=== PATIENT | female | born 1970 | race Caucasian/White ===

== ENCOUNTER 2021-12-31 21:12 | Emergency (ER) | payer MEDICARE, MEDICAID ==
[~2021-12-31] VITALS: Ht 157.4 cm; Wt 67.1 kg
[2021-12-31] MEDS ORDERED: LASIX40 MG PO (22:08)
[2021-12-31] MEDS ORDERED: ONE DAILY WITH1 EACH PO (22:09)
[2021-12-31] MEDS ORDERED: SEROQUEL25 MG PO (22:09)
[2021-12-31] MEDS ORDERED: K-TAB10 MEQ PO (22:09)
[2021-12-31] MEDS ORDERED: VITAMIN B-121000 MC2 PO (22:10)
[2021-12-31] MEDS ORDERED: VITAMIN D3250 MCG PO (22:11)
[2021-12-31] MEDS ORDERED: OMEPRAZOLE40 MG PO (22:11)
[2021-12-31] MEDS ORDERED: LEVOTHYROXINE75 MC1 PO (22:11)
[2021-12-31] MEDS ORDERED: TOPAMAX100 M1 PO (22:12)
[2021-12-31] MEDS ORDERED: ASPIRIN FOR CHI81 MG PO (22:12)
[2021-12-31] MEDS ORDERED: VISTARIL25 MG PO (22:12)
[2021-12-31] MEDS ORDERED: BUSPAR15 MG PO (22:13)
[2021-12-31] MEDS ORDERED: CYMBALTA60 MG PO (22:13)
[2021-12-31] MEDS ORDERED: TENORMIN50 MG PO (22:15)
[2021-12-31] MEDS ORDERED: ACYCLOVIR400 MG PO (22:17)
[2021-12-31] MEDS ORDERED: NEXIUM 24HR20 M1 PO (22:17)
[2021-12-31] MEDS ORDERED: POTASSIUM CHLO20 ME3 PO (22:20)
[2021-12-31 23:14] LABS: BILIRUBIN Negative (Negative); BLOOD Negative (Negative); CLARITY Cloudy (Clear); COLOR Yellow (Yellow); GLUCOSE Negative (Negative); KETONE Negative (Negative); LEUKO ESTERASE 2+ (Negative); NITRITE Positive (Negative); PH 6.5 (4.5-8.0); SPECIFIC GRAVITY 1.015 (1.001-1.030)
[2021-12-31 23:16] LABS: BASO # 0.1 10*3/uL (0.0-0.1); BASO % 0.9 % (0.0-1.0); EOS # 0.3 10*3/uL (0.0-0.4); EOS % 2.4 % (1.0-4.0); LYMPH # 3.2 10*3/uL (1.3-4.4); LYMPH % 25.9 % (27.0-41.0); MEAN CELL VOLUME 84.5 fl (81.0-99.0); MEAN PLATELET VOLUME 11.3 fl (9.6-12.3); MONO # 1.2 10*3/uL (0.1-1.0); MONO % 9.6 % (3.0-9.0); NEUT # 7.4 10*3/uL (2.3-7.9); NEUT % 60.6 % (47.0-73.0); PLATELET COUNT AUTOMATED 302 10*3/uL (130-400); RED BLOOD COUNT 4.85 10*6/uL (4.10-5.10); RED CELL DISTRI WIDTH 14.1 % (0-14.5); WHITE BLOOD COUNT 12.3 10*3/uL (4.8-10.8)
[2021-12-31 23:25] LABS: BACTERIA 2+; EPITHELIAL CELLS TNTC; WBC 16-20 wbc/hpf (0-5)
[2021-12-31 23:38] LABS: ALKALINE PHOSPHATASE 99 U/L (45-117); BUN 9 mg/dl (7-24); CHLORIDE 109 mmol/L (98-107); CREATININE 0.95 mg/dL (0.55-1.02); POTASSIUM 3.2 mmol/L (3.5-5.1); SGOT/AST 12 IU/L (3-35); SGPT/ALT 29 U/L (12-78); SODIUM 141 mmol/L (136-145); TOTAL PROTEIN 6.9 gm/dL (6.4-8.2)
[2022-01-01] MEDS ORDERED: AMOX TR-K CLV1 EACH PO (02:12)
== END 2022-01-01 02:15 | disposition home or self-care (01) ==
LOC: ED 21:12
PROVIDERS: Emergency Medicine
DX: J98.01 Acute bronchospasm (principal); J44.1 Chronic obstructive pulmonary disease with (acute) exacerbation; N39.0 Urinary tract infection, site not specified; R53.83 Other fatigue; U09.9 Post COVID-19 condition, unspecified; E03.9 Hypothyroidism, unspecified; Z88.8 Allergy status to other drugs, medicaments and biological substances; Z88.1 Allergy status to other antibiotic agents; Z88.5 Allergy status to narcotic agent; Z79.82 Long term (current) use of aspirin; Z79.899 Other long term (current) drug therapy

== ENCOUNTER 2022-01-01 17:38 | Emergency (ER) | payer MEDICARE, MEDICAID ==
[~2022-01-01 17:38] MED LIST: ACYCLOVIR400 MG PO; AMOX TR-K CLV1 EACH PO; ASPIRIN FOR CHI81 MG PO; BUSPAR15 MG PO; CYMBALTA60 MG PO; K-TAB10 MEQ PO; LASIX40 MG PO; LEVOTHYROXINE75 MC1 PO; NEXIUM 24HR20 M1 PO; OMEPRAZOLE40 MG PO; ONE DAILY WITH1 EACH PO; POTASSIUM CHLO20 ME3 PO; SEROQUEL25 MG PO; TENORMIN50 MG PO; TOPAMAX100 M1 PO; VISTARIL25 MG PO; VITAMIN B-121000 MC2 PO; VITAMIN D3250 MCG PO
[2022-01-01 18:11] LABS: BASO # 0.1 10*3/uL (0.0-0.1); EOS # 0.3 10*3/uL (0.0-0.4); EOS % 2.7 % (1.0-4.0); HEMATOCRIT 42.4 % (37.0-47.0); LYMPH # 0.6 10*3/uL (1.3-4.4); LYMPH % 5.5 % (27.0-41.0); MEAN CELL VOLUME 85.7 fl (81.0-99.0); MEAN CORPUSCULAR HGB 27.3 pg (27.0-31.0); MEAN CORPUSCULAR HGB CONC 31.8 g/dl (33.0-37.0); MEAN PLATELET VOLUME 11.7 fl (9.6-12.3); MONO # 1.3 10*3/uL (0.1-1.0); MONO % 11.6 % (3.0-9.0); NEUT # 8.7 10*3/uL (2.3-7.9); NEUT % 78.5 % (47.0-73.0); PLATELET COUNT AUTOMATED 254 10*3/uL (130-400); RED BLOOD COUNT 4.95 10*6/uL (4.10-5.10); RED CELL DISTRI WIDTH 14.5 % (0-14.5); WHITE BLOOD COUNT 11.1 10*3/uL (4.8-10.8)
[2022-01-01 18:29] LABS: CREATININE 1.18 mg/dL (0.55-1.02); POTASSIUM 3.4 mmol/L (3.5-5.1); TOTAL PROTEIN 6.9 gm/dL (6.4-8.2)
[2022-01-01 20:35] LABS: BILIRUBIN Negative (Negative); BLOOD Negative (Negative); CLARITY Clear (Clear); COLOR Yellow (Yellow); GLUCOSE Negative (Negative); KETONE Negative (Negative); LEUKO ESTERASE Negative (Negative); NITRITE Negative (Negative); PH 7.5 (4.5-8.0); SPECIFIC GRAVITY 1.015 (1.001-1.030); UROBILINOGEN 0.2 E.U./dl (0.0-1.0)
[2022-01-01 21:15] LABS: RBC 0-2 rbc/hpf (0-2)
[2022-01-01 21:16] LABS: HYALINE CAST 0-2; MUCOUS 1+
== END 2022-01-01 21:37 | disposition home or self-care (01) ==
LOC: ED 17:38
PROVIDERS: Emergency Medicine
DX: R30.0 Dysuria (principal); R51.9 Headache, unspecified; J44.9 Chronic obstructive pulmonary disease, unspecified; Z88.1 Allergy status to other antibiotic agents; Z88.8 Allergy status to other drugs, medicaments and biological substances; Z79.899 Other long term (current) drug therapy; Z79.82 Long term (current) use of aspirin; Z86.73 Personal history of transient ischemic attack (TIA), and cerebral infarction without residual deficits

== ENCOUNTER → 2022-10-22 | Outpatient (CLI) | payer MEDICARE ==
[2022-10-22 13:40] LABS: BASO # 0.1 10*3/uL (0.0-0.1); BASO % 0.6 % (0.0-1.0); EOS # 0.1 10*3/uL (0.0-0.4); EOS % 1.1 % (1.0-4.0); HEMATOCRIT 41.3 % (37.0-47.0); LYMPH % 17.9 % (27.0-41.0); MEAN CORPUSCULAR HGB 27.5 pg (27.0-31.0); MEAN CORPUSCULAR HGB CONC 30.3 g/dl (33.0-37.0); MEAN PLATELET VOLUME 11.6 fl (9.6-12.3); MONO # 0.8 10*3/uL (0.1-1.0); MONO % 7.7 % (3.0-9.0); NEUT # 7.8 10*3/uL (2.3-7.9); NEUT % 72.2 % (47.0-73.0); PLATELET COUNT AUTOMATED 241 10*3/uL (130-400); RED BLOOD COUNT 4.54 10*6/uL (4.10-5.10); RED CELL DISTRI WIDTH 14.1 % (0-14.5); WHITE BLOOD COUNT 10.9 10*3/uL (4.8-10.8)
== END | disposition home or self-care (01) ==
LOC: LAB 13:11
PROVIDERS: ATTEND Internal Medicine Critical Care Medicine
DX: Z79.899 Other long term (current) drug therapy (principal)

== ENCOUNTER → 2022-11-28 | Outpatient (CLI) | payer MEDICARE ==
[2022-11-28 11:47] LABS: BASO # 0.1 10*3/uL (0.0-0.1); BASO % 0.8 % (0.0-1.0); EOS # 0.1 10*3/uL (0.0-0.4); EOS % 1.1 % (1.0-4.0); HEMATOCRIT 42.3 % (37.0-47.0); LYMPH # 1.7 10*3/uL (1.3-4.4); LYMPH % 18.1 % (27.0-41.0); MEAN CELL VOLUME 89.2 fl (81.0-99.0); MEAN CORPUSCULAR HGB 28.3 pg (27.0-31.0); MEAN CORPUSCULAR HGB CONC 31.7 g/dl (33.0-37.0); MEAN PLATELET VOLUME 11.5 fl (9.6-12.3); MONO # 0.8 10*3/uL (0.1-1.0); MONO % 8.3 % (3.0-9.0); NEUT # 6.8 10*3/uL (2.3-7.9); NEUT % 71.3 % (47.0-73.0); PLATELET COUNT AUTOMATED 274 10*3/uL (130-400); RED BLOOD COUNT 4.74 10*6/uL (4.10-5.10); RED CELL DISTRI WIDTH 13.2 % (0-14.5); WHITE BLOOD COUNT 9.5 10*3/uL (4.8-10.8)
== END | disposition home or self-care (01) ==
LOC: LAB 11:31
PROVIDERS: ATTEND Internal Medicine Critical Care Medicine
DX: Z79.899 Other long term (current) drug therapy (principal)

== ENCOUNTER 2023-02-03 00:49 | Emergency (ER) | payer MEDICARE ==
[~2023-02-03] VITALS: Ht 167.6 cm; Wt 64.0 kg
== END 2023-02-03 01:40 | disposition left against medical advice (07) ==
LOC: ED 00:49
DX: R56.9 Unspecified convulsions (principal); J44.9 Chronic obstructive pulmonary disease, unspecified; F32.A Depression, unspecified; F41.9 Anxiety disorder, unspecified; Z86.73 Personal history of transient ischemic attack (TIA), and cerebral infarction without residual deficits; Z88.8 Allergy status to other drugs, medicaments and biological substances; Z88.5 Allergy status to narcotic agent

== ENCOUNTER → 2023-12-28 | Outpatient (CLI) | payer OTHER ==
[2023-12-28 13:15] LABS: BASO # 0.1 10*3/uL (0.0-0.1); BASO % 0.4 % (0.0-1.0); EOS % 0.2 % (1.0-4.0); HEMATOCRIT 40.5 % (37.0-47.0); LYMPH # 1.5 10*3/uL (1.3-4.4); LYMPH % 7.8 % (27.0-41.0); MEAN CELL VOLUME 86.9 fl (81.0-99.0); MEAN CORPUSCULAR HGB 27.3 pg (27.0-31.0); MEAN CORPUSCULAR HGB CONC 31.4 g/dl (33.0-37.0); MEAN PLATELET VOLUME 11.3 fl (9.6-12.3); MONO # 0.8 10*3/uL (0.1-1.0); MONO % 4.3 % (3.0-9.0); NEUT # 17.1 10*3/uL (2.3-7.9); NEUT % 86.4 % (47.0-73.0); PLATELET COUNT AUTOMATED 337 10*3/uL (130-400); RED BLOOD COUNT 4.66 10*6/uL (4.10-5.10); RED CELL DISTRI WIDTH 14.6 % (0-14.5); WHITE BLOOD COUNT 19.8 10*3/uL (4.8-10.8)
[2023-12-28 13:25] LABS: BILIRUBIN Negative (Negative); BLOOD Negative (Negative); CLARITY Clear (Clear); COLOR Dark Yellow (Yellow); GLUCOSE Negative (Negative); KETONE Negative (Negative); LEUKO ESTERASE Negative (Negative); NITRITE Negative (Negative); PH 5.5 (4.5-8.0); SPECIFIC GRAVITY <= 1.005 (1.001-1.030); UROBILINOGEN 0.2 E.U./dl (0.0-1.0)
[2023-12-28 13:31] LABS: ALKALINE PHOSPHATASE 154 U/L (46-116); BUN 10 mg/dl (9-23); CHLORIDE 107 mmol/L (98-107); CHOLESTEROL 139 mg/dL (<200); LDL CHOLESTEROL 67 mg/dL (9-159); LIPASE 33 U/L (12-53); POTASSIUM 3.3 mmol/L (3.4-5.1); SGPT/ALT 18 U/L (5-49); TOTAL PROTEIN 7.1 gm/dL (6.0-8.0); TRIGLYCERIDES 78 mg/dl (<150)
[2023-12-28 13:52] LABS: RBC 0-2 rbc/hpf (0-2); WBC 0-2 wbc/hpf (0-5)
== END | disposition home or self-care (01) ==
LOC: LAB 12:28
PROVIDERS: ATTEND Family Medicine
DX: R30.0 Dysuria (principal); I10 Essential (primary) hypertension; R18.8 Other ascites; K76.6 Portal hypertension

== ENCOUNTER → 2024-01-12 | Outpatient (CLI) | payer OTHER ==
[~2024-01-12] MED LIST changes: +IOHEXOL 300 MG/ML 100 ML VIAL IV ONE
== END | disposition home or self-care (01) ==
LOC: CT 13:00
PROVIDERS: ATTEND Family Medicine
DX: R59.9 Enlarged lymph nodes, unspecified (principal); J36 Peritonsillar abscess